=== PATIENT | male | born 1960 | race Caucasian/White ===

== ENCOUNTER 2016-10-23 08:32 | Emergency (ER) | payer BC ==
[2016-10-23 08:39] VITALS: TEMP 98; BMI 29.1
[2016-10-23] MEDS ORDERED: PANTOPRAZOLE SODIUM 40 MG in SODIUM CHLORIDE 100 ML IVPB ONE (08:52)
--- NOTE | 2016-10-23 08:52 | PDOC ---
History of Present Illness - General Chief Complaint: Colic Stated Complaint: SONALI ISABEL HAVING ACID REFLUX Time Seen by Provider: 10/23/16 08:40 - History of Present Illness Initial Comments: 10/23/16 10:25 Chief complaint: Epigastric burning History of present illness: Patient states that he had [place] food and soda last night for dinner, and this morning he woke up with gargling and burning in his epigastrium which radiated up through the center of his chest, accompanied by acid taste in the mouth. There was no nausea or vomiting or severe abdominal pain. He is aware that cardiac pain can present in atypical fashion and was concerned. Review of systems: Denies nausea, diaphoresis, radiation of pain to the arms, shoulders, or jaw. Denies courtney chest pain, shortness of breath, hematemesis, melena, bloody stool, vomiting or diarrhea, visual or focal neurologic symptoms , unsteadiness of gait, lightheadedness or dizziness, vertigo, urinary tract symptoms. Past medical history: Patient has elevated cholesterol and triglycerides controlled on Lipitor. "Borderline diabetes". No high blood pressure or other cardiovascular disease in the past. Had a stress test several years ago, which was negative. Has periodic symptoms of GERD after eating spicy foods, similar to this morning. Which she controls on Tums. He did not take Tums or any other stomach medication today. Family history: No history of early coronary artery disease or other cardiac disease in mother father or sister. No other significant illnesses in his immediate family Social history: Denies tobacco alcohol or drugs. Fully active and without disability Physical exam: Alert and oriented 3, well-developed well-nourished, no acute distress, cheerful and cooperative Afebrile, vital signs normal PERRLA, fundi benign, ENT clear Neck supple without bruit mass or nodes Lungs clear with full breath sounds throughout bilaterally CV regular without murmur rub or gallop pulses full and symmetric no JVD or edema no bruits Abdomen nondistended. Soft without mass tenderness or organomegaly. Bowel sounds normal. No CVAT Neurological intact Extremities no CCE Skin clear, no rash, adequate turgor and wet mucous membranes Impression: Patient symptoms are most likely due to to acid reflux, GERD, or dyspepsia. Symptoms and examination overwhelmingly suggest a GI origin. Minimal risk factors. Rule out occult coronary syndrome Plan: EKG and cardiac enzymes, CBC and chemistries, trial of Protonix and observation. Past History - Past Medical History Allergies/Adverse Reactions: Allergies Allergy/AdvReac Type Severity Reaction Status Date / Time No Known Allergies Allergy Verified 10/23/16 08:33 Home Medications: Ambulatory Orders Atorvastatin Ca [Lipitor -] 10 mg PO HS 06/24/14 Bupropion HCl [Wellbutrin Xl -] 300 mg PO DAILY 06/24/14 Buspirone HCl [Buspar -] 45 mg PO DAILY 06/24/14 Clonazepam [Klonopin] 3 mg PO DAILY 06/24/14 Meloxicam [Mobic] 15 mg PO DAILY 06/24/14 Methylphenidate HCl [Concerta] 54 mg PO DAILY 06/24/14 Venlafaxine HCl ER [Effexor Xr -] 150 mg PO DAILY 06/24/14 Hypercholesterolemia: Yes Psychiatric Problems: Yes (ANXIETY, DEPRESSION) - Psycho/Social/Smoking Cessation Hx Anxiety: No Suicidal Ideation: No Smoking History: Never smoked Hx Alcohol Use: No Drug/Substance Use Hx: No Substance Use Type: None *Physical Exam - Vital Signs Last Vital Signs Temp Pulse Resp BP Pulse Ox 98 F 78 16 148/103 100 10/23/16 08:33 10/23/16 08:33 10/23/16 08:33 10/23/16 08:33 10/23/16 08:33 ED Treatment Course - LABORATORY CBC & Chemistry Diagram: 10/23/16 08:50 10/23/16 08:50 Progress Note - Progress Note Progress Note: Patient symptoms have completely resolved after the administration of Protonix. He has no abdominal or chest discomfort. Attempts are being made to obtain copies of prior EKGs. Copies of prior EKGs were obtained. Most recent of which is dated 10/30/2015. There have been no interval changes. The early repolarization as well as the T- wave inversions in lead 3 although these are not abnormal, are identical. Cardiac enzymes are normal, as well as remainder of the CBC and chemistries except for very mild elevation of the glucose. The patient is instructed to follow-up with his primary physician, to make sure his lipids are controlled, and to discuss his mildly elevated blood sugar, which she is told should be repeated in the fasting state, as well as obtaining a hemoglobin A1c. *DC/Admit/Observation/Transfer Diagnosis at time of Disposition: Acid reflux Qualifiers: Esophagitis presence: without esophagitis Qualified Code(s): K21.9 - Gastro- esophageal reflux disease without esophagitis - Discharge Dispostion Disposition: HOME Condition at time of disposition: Improved Admit: No - Referrals Referrals: Ihsan Montes MD [Staff Physician] - - Patient Instructions Printed Discharge Instructions: DI for Gastroesophageal Reflux Disease (GERD) Additional Instructions: Return to ER if symptoms worsen or new symptoms develop Discuss cholesterol, triglycerides, slightly elevated blood sugar, and heartburn symptoms with your doctor. Consider doing a fasting blood sugar and hemoglobin A1c to further evaluate your diabetes risk.
[2016-10-23] MEDS ORDERED: PANTOPRAZOLE SODIUM 40 MG VIAL ONE (08:59)
[2016-10-23 09:02] LABS: BASOPHIL 0.8 % (0-2.0); EOSINOPHIL 3.2 % (0-4.5); MCH 29.9 pg (25.7-33.7); MCHC 34.1 g/dl (32.0-35.9); MEAN CELL VOLUME 87.4 fl (80-96); MEAN PLT VOLUME 9.4 fl (7.5-11.1); NEUTROPHILS 68.8 % (42.8-82.8); PLATELET COUNT 188 K/MM3 (134-434); RDW 12.9 % (11.9-15.9); WHITE BLOOD COUNT 7.2 K/mm3 (4.0-10.8)
[2016-10-23 09:33] LABS: ALK PHOS 62 U/L (32-92); ANION GAP 6 (8-16); BILIRUBIN,TOTAL 0.6 mg/dl (0.2-1.0); CO2 28 mmol/L (22-28); CPK 140 IU/L (39-308); CREATININE 1.3 mg/dl (0.6-1.3); GLUCOSE,RANDOM 127 mg/dl (74-106); SGOT/AST 38 U/L (10-42); SGPT/ALT 43 U/L (10-40); TOT PROT 6.7 g/dl (6.4-8.3)
[2016-10-23 09:59] VITALS: BP 135/89; PULSE 74
[2016-10-23 11:09] LABS: TROPONIN I (DFP) < 0.03 ng/ml (0.03-0.50)
--- NOTE | 2016-10-24 13:11 | EKG ---
Test Reason : Blood Pressure : / mmHG Vent. Rate : 074 BPM Atrial Rate : 074 BPM P-R Int : 156 ms QRS Dur : 082 ms QT Int : 380 ms P-R-T Axes : 045 046 009 degrees QTc Int : 421 ms SINUS RHYTHM EARLY REPOLARIZATION NO PREVIOUS ECGS AVAILABLE Confirmed by NANCY CLAROS MD ([id number]) on 10/24/2016 1:10:44 PM Referred By: LALITO SINGH Confirmed By:NANCY CLAROS MD
== END 2016-10-23 11:33 | disposition home or self-care (01) ==
LOC: FER 08:32
PROC: 3E033GC Introduction of Other Therapeutic Substance into Peripheral Vein, Percutaneous Approach (ICD-10-PCS; principal; 2016-10-23)
DX: K21.9 Gastro-esophageal reflux disease without esophagitis (principal); E78.00 Pure hypercholesterolemia, unspecified; F32.9 Major depressive disorder, single episode, unspecified; F41.9 Anxiety disorder, unspecified
CPT/HCPCS: 36415; 80053; 84484; 85025; 93005; 99283-25

== ENCOUNTER 2020-04-11 03:02 | Emergency (ER) | payer BC ==
[2020-04-11 03:10] VITALS: TEMP 98.7; BMI 29.5
[2020-04-11] MEDS ORDERED: KETOROLAC TROMETHAMINE 30 MG/1 ML VIAL IVPUSH ONE (03:49)
[2020-04-11] MEDS ORDERED: KETOROLAC TROMETHAMINE 30 MG/1 ML VIAL ONE (03:58)
[2020-04-11] MEDS ORDERED: SODIUM PHOSPHATE/NA BIPHOS 133 ML ENEMA PR ONE (04:35)
[2020-04-11 05:22] LABS: CALCIUM 8.7 mg/dL (8.5-10.1)
[2020-04-11 05:23] LABS: ALBUMIN 3.8 g/dl (3.4-5.0); BLOOD UREA NITROGEN 16.8 mg/dL (7-18)
[2020-04-11 05:26] LABS: CREATININE 1.1 mg/dL (0.55-1.3)
[2020-04-11 05:27] LABS: BILIRUBIN,TOTAL 0.4 mg/dL (0.2-1); TOT PROT 7.3 g/dl (6.4-8.2)
[2020-04-11 05:35] VITALS: BP 135/90; PULSE 95
[2020-04-11 05:49] LABS: BASO % 0.2 % (0-2.0); EOS % 0.6 % (0-4.5); HEMATOCRIT 39.5 % (35.4-49); HEMOGLOBIN 13.8 GM/dL (11.7-16.9); LYMPH % 10.5 % (8-40); MCH 30.7 pg (25.7-33.7); MEAN CELL VOLUME 87.8 fl (80-96); MEAN PLT VOLUME 8.7 fl (7.5-11.1); MONO % 7.6 % (3.8-10.2); NEUT % 81.1 % (42.8-82.8); PLATELET COUNT 219 K/MM3 (134-434); RDW 13.5 % (11.9-15.9); WHITE BLOOD COUNT 16.4 K/mm3 (4.0-10.0)
== END 2020-04-11 05:39 | disposition home or self-care (01) ==
LOC: FER 03:02
PROC: 3E0333Z Introduction of Anti-inflammatory into Peripheral Vein, Percutaneous Approach (ICD-10-PCS; principal; 2020-04-11)
DX: K59.00 Constipation, unspecified (principal)
CPT/HCPCS: 36415; 80053; 85025; 99284-25